=== PATIENT | female | born 1975 | race Caucasian/White ===

== ENCOUNTER 2020-09-26 12:38 | Observation (INO) ==
[2020-09-26 16:34] LABS: Basophils # 0.1 10*3/uL (0.0-0.2); Basophils % 0.7 % (0.0-0.8); Eosinophils # 0.4 10*3/uL (0.0-0.87); Eosinophils % 2.6 % (0.00-10.9); Hematocrit 39.9 VOL% (35.7-47.0); Immature Granulocytes % 0.5 %; Immature Granulocytes Absolute 0.08 #; Lymphocytes # 3.2 10*3/uL (1.4-4.0); Lymphocytes % 21.1 % (21.3-54.2); Mean Corpuscular HGB Conc 35.1 GM/DL (32-36); Mean Corpuscular Volume 90.3 FL (87-102); Mean Platelet Volume 10.3 FL (9.6-12.0); Monocytes % 8.7 % (1.7-12.7); Neutrophils % 66.4 % (38.7-73.9); Platelet Count 352 T/CUMM (130-400); Red Blood Count 4.42 MC/CUMM (3.8-5.5); Red Cell Distribution Width 12.1 % (9.3-17.3); White Blood Count 15.1 T/CUMM (4-12)
[2020-09-26 16:53] LABS: Albumin 3.2 G/DL (3.4-5.0); Bilirubin,Total 0.4 MG/DL (0.2-1.0); Calcium 9.3 MG/DL (8.5-10.1); Osmolality,Calculated 280.3 MOS/KG (273-304); Potassium 3.3 MMOL/L (3.5-5.1); Total Protein 7.9 G/DL (6.4-8.3)
[2020-09-26] MEDS ORDERED: VANCOMYCIN INJ 1,000 MG in SODIUM CHLORIDE 0.9% 250 ML IV STA (17:26)
[2020-09-26] MEDS ORDERED: LACTATED RINGERS 1,000 ML IV ONE (17:26)
[2020-09-26] MEDS ORDERED: ONDANSETRON 4 MG/2 ML VIAL IV STA (17:27)
[2020-09-26] MEDS ORDERED: MORPHINE 4 MG/1 ML VIAL IV STA (17:27)
[2020-09-26] MEDS ORDERED: GLUCAGON 1 MG VIAL IM PRN (18:45)
[2020-09-26] MEDS ORDERED: DEXTROSE 50% 25 GM/50 ML VIAL IV PRN (18:45)
[2020-09-26] MEDS ORDERED: ENOXAPARIN 40 MG/0.4 ML SYRINGE SUBCUT SCH (21:00)
[2020-09-26] MEDS: INSULIN REGULAR 100 UNIT/ML SUBCUT SCH (21:53)
[2020-09-26] MEDS: NICOTINE 21 MG/24 HR PATCH TRANSDERM SCH (22:17)
[2020-09-26] MEDS: HYDROmorphone 2 MG/1 ML VIAL IV PRN (23:09)
[2020-09-27] MEDS: VANCOMYCIN INJ 1,250 MG in SODIUM CHLORIDE 0.9% 250 ML IV SCH ×2 (04:15→17:57)
[2020-09-27] MEDS: HYDROmorphone 2 MG/1 ML VIAL IV PRN ×4 (04:20→23:49)
[2020-09-27] MEDS: ONDANSETRON 4 MG/2 ML VIAL IV PRN ×3 (04:24→17:48)
[2020-09-27 07:52] LABS: Basophils # 0.1 10*3/uL (0.0-0.2); Basophils % 1.1 % (0.0-0.8); Eosinophils # 0.2 10*3/uL (0.0-0.87); Eosinophils % 2.5 % (0.00-10.9); Hematocrit 37.6 VOL% (35.7-47.0); Hemoglobin 12.9 GM/DL (12.0-16.0); Immature Granulocytes % 0.6 %; Immature Granulocytes Absolute 0.06 #; Lymphocytes # 1.9 10*3/uL (1.4-4.0); Lymphocytes % 18.9 % (21.3-54.2); Mean Corpuscular HGB Conc 34.3 GM/DL (32-36); Mean Corpuscular Volume 93.5 FL (87-102); Mean Platelet Volume 10.4 FL (9.6-12.0); Monocytes % 8.8 % (1.7-12.7); Neutrophils % 68.1 % (38.7-73.9); Platelet Count 317 T/CUMM (130-400); Red Blood Count 4.02 MC/CUMM (3.8-5.5); Red Cell Distribution Width 12.1 % (9.3-17.3); White Blood Count 9.8 T/CUMM (4-12)
[2020-09-27 08:19] LABS: Albumin 2.6 G/DL (3.4-5.0); Bilirubin,Total 0.7 MG/DL (0.2-1.0); Calcium 9.1 MG/DL (8.5-10.1); Osmolality,Calculated 287.1 MOS/KG (273-304); Potassium 3.5 MMOL/L (3.5-5.1); Total Protein 6.7 G/DL (6.4-8.3)
[2020-09-27] MEDS ORDERED: INFLUENZA VIRUS VACCINE 0.5 ML SYRINGE IM ONE (09:00)
[2020-09-27] MEDS: INSULIN REGULAR 100 UNIT/ML SUBCUT SCH ×4 (09:24→20:20)
[2020-09-27] MEDS: NICOTINE 21 MG/24 HR PATCH TRANSDERM SCH ×2 (09:36→16:06)
[2020-09-27] MEDS ORDERED: propofoL 200 MG/20 ML VIAL IV ONE (10:02)
[2020-09-27] MEDS ORDERED: fentaNYL 100 MCG/2 ML VIAL ONE (10:02)
[2020-09-27] MEDS ORDERED: LIDOCAINE 2% 5 ML VIAL ONE (10:02)
[2020-09-27] MEDS ORDERED: MIDAZOLAM 2 MG/2 ML VIAL ONE (10:02)
[2020-09-27] MEDS ORDERED: LIDOCAINE 1% 20 ML VIAL ONE (10:21)
[2020-09-27] MEDS ORDERED: BUPIVACAINE MPF 0.25% 30 ML VIAL ONE (10:21)
[2020-09-27] MEDS ORDERED: FAMOTIDINE 20 MG/2 ML VIAL IV ONE (10:35)
[2020-09-27] MEDS ORDERED: SEVOFLURANE 1 UNIT/15 MINUTE INH ONE (11:02)
[2020-09-27] MEDS ORDERED: ONDANSETRON 4 MG/2 ML VIAL ONE (11:03)
[2020-09-27] MEDS ORDERED: HYDROmorphone 2 MG/1 ML VIAL IV PRN (11:26)
[2020-09-27] MEDS ORDERED: ONDANSETRON 4 MG/2 ML VIAL IV PRN (11:26)
[2020-09-27] MEDS: PANTOPRAZOLE 40 MG TABLET PO SCH (16:07)
[2020-09-27] MEDS ORDERED: INSULIN GLARGINE 100 UNIT/ML SUBCUT SCH (21:00)
[2020-09-28] MEDS: VANCOMYCIN INJ 1,250 MG in SODIUM CHLORIDE 0.9% 250 ML IV SCH (04:28)
[2020-09-28 05:34] LABS: Basophils # 0.1 10*3/uL (0.0-0.2); Eosinophils # 0.3 10*3/uL (0.0-0.87); Eosinophils % 3.2 % (0.00-10.9); Hematocrit 35.7 VOL% (35.7-47.0); Hemoglobin 12.1 GM/DL (12.0-16.0); Immature Granulocytes % 0.4 %; Immature Granulocytes Absolute 0.04 #; Lymphocytes # 3.1 10*3/uL (1.4-4.0); Lymphocytes % 34.3 % (21.3-54.2); Mean Corpuscular HGB Conc 33.9 GM/DL (32-36); Mean Corpuscular Volume 91.8 FL (87-102); Mean Platelet Volume 10.1 FL (9.6-12.0); Monocytes % 9.6 % (1.7-12.7); Neutrophils % 51.5 % (38.7-73.9); Platelet Count 310 T/CUMM (130-400); Red Blood Count 3.89 MC/CUMM (3.8-5.5); Red Cell Distribution Width 11.9 % (9.3-17.3); White Blood Count 8.9 T/CUMM (4-12)
[2020-09-28 06:33] LABS: Calcium 8.8 MG/DL (8.5-10.1); Osmolality,Calculated 279.3 MOS/KG (273-304); Potassium 3.3 MMOL/L (3.5-5.1)
[2020-09-28] MEDS ORDERED: MAGNESIUM SULF RIDER 4 GM in PREMIX 1 EACH IV PRN (07:02)
[2020-09-28] MEDS ORDERED: MAGNESIUM SULF RIDER 2 GM in PREMIX 1 EACH IV PRN (07:02)
[2020-09-28] MEDS: INSULIN REGULAR 100 UNIT/ML SUBCUT SCH ×2 (07:50→13:42)
[2020-09-28] MEDS: ONDANSETRON 4 MG/2 ML VIAL IV PRN (07:56)
[2020-09-28] MEDS: HYDROmorphone 2 MG/1 ML VIAL IV PRN (07:59)
[2020-09-28] MEDS: NICOTINE 21 MG/24 HR PATCH TRANSDERM SCH (08:12)
[2020-09-28] MEDS: PANTOPRAZOLE 40 MG TABLET PO SCH (08:12)
[2020-09-28 12:45] VITALS: BP 157/75
[2020-09-28] MEDS ORDERED: AMOXICILLIN 500 MG CAPSULE PO SCH (15:00)
== END 2020-09-28 15:48 | disposition home or self-care (01) ==
LOC: N.3E 12:38 → N.ED 12:38 → SUATTDRO 19:52 → N.3E 20:26
PROVIDERS: ADMIT Internal Medicine; ATTEND Internal Medicine

== ENCOUNTER 2021-06-09 13:49 | Inpatient (IN) ==
[2021-06-09 14:33] LABS: Basophils # 0.1 10*3/uL (0.0-0.2); Basophils % 0.8 % (0.0-0.8); Eosinophils # 0.2 10*3/uL (0.0-0.87); Eosinophils % 1.3 % (0.00-10.9); Hematocrit 37.7 VOL% (35.7-47.0); Hemoglobin 12.5 GM/DL (12.0-16.0); Immature Granulocytes % 0.9 %; Immature Granulocytes Absolute 0.13 #; Lymphocytes # 2.9 10*3/uL (1.4-4.0); Lymphocytes % 20.7 % (21.3-54.2); Mean Corpuscular HGB Conc 33.2 GM/DL (32-36); Mean Corpuscular Volume 94.7 FL (87-102); Mean Platelet Volume 10.5 FL (9.6-12.0); Monocytes % 9.5 % (1.7-12.7); Neutrophils % 66.8 % (38.7-73.9); Platelet Count 484 T/CUMM (130-400); Red Blood Count 3.98 MC/CUMM (3.8-5.5); Red Cell Distribution Width 12.4 % (9.3-17.3); White Blood Count 13.8 T/CUMM (4-12)
[2021-06-09 14:40] LABS: Bacteria,Urine Occasional /HPF (Few); Bilirubin,Urine Negative (Negative); Blood, Urine Small mg/dL (Negative); Glucose,Urine (UA) >=500 mg/dL (Negative); Ketones,Urine Negative (Negative); Nitrite,Urine Negative (Negative); Protein,Urine 30 MG/DL; RBC,Urine 3 /HPF (0-4); Squamous Epithelial Cell,Urine Occasional /HPF (0-10); Urine Appearance CLEAR (Clear); Urine Color Yellow (Yellow); Urine Specific Gravity 1.007 (1.001-1.035)
[2021-06-09 14:52] LABS: Albumin 2.6 G/DL (3.4-5.0); Bilirubin,Total 0.8 MG/DL (0.20-1.00); Calcium 8.8 MG/DL (8.5-10.1); Osmolality,Calculated 273.4 MOS/KG (273-304); Total Protein 7.8 G/DL (6.4-8.2)
[2021-06-09] MEDS ORDERED: SODIUM CHLORIDE 0.9% 1,000 ML IV STA (14:58)
[2021-06-09] MEDS ORDERED: METOCLOPRAMIDE 10 MG/2 ML VIAL IV STA (14:59)
[2021-06-09] MEDS ORDERED: PANTOPRAZOLE 40 MG VIAL IV STA (14:59)
[2021-06-09] MEDS ORDERED: ONDANSETRON 4 MG/2 ML VIAL IV STA (14:59)
[2021-06-09] MEDS ORDERED: ENOXAPARIN 100 MG/ML SYRINGE SUBCUT STA (15:46)
[2021-06-09] MEDS ORDERED: carvediloL 3.125 MG TABLET PO STA (15:46)
[2021-06-09] MEDS ORDERED: ASPIRIN CHEW 81 MG TABLET PO STA (15:46)
[2021-06-09] MEDS ORDERED: MAGNESIUM SULF RIDER 2 GM/50 ML PREMIX IV PRN (16:15)
[2021-06-09] MEDS ORDERED: MAGNESIUM SULF RIDER 4 GM/100 ML PREMIX IV PRN (16:15)
[2021-06-09] MEDS ORDERED: ASPIRIN 325 MG TABLET PO STA (16:25)
[2021-06-09] MEDS ORDERED: GLUCAGON 1 MG VIAL IM PRN (16:41)
[2021-06-09] MEDS ORDERED: DEXTROSE 50% 25 GM/50 ML VIAL IV PRN (16:41)
[2021-06-09] MEDS: buPROPion 75 MG TABLET PO SCH ×2 (17:51→21:13)
[2021-06-09] MEDS: COLCHICINE 0.6 MG CAPSULE PO SCH ×2 (17:51→21:13)
[2021-06-09] MEDS ORDERED: ENOXAPARIN 80 MG/0.8 ML SYRINGE SUBCUT SCH (18:00)
[2021-06-09] MEDS ORDERED: INSULIN GLARGINE 100 UNIT/ML SUBCUT SCH ×2 (21:00)
[2021-06-09] MEDS: INSULIN REGULAR 100 UNIT/ML SUBCUT SCH (21:15)
[2021-06-10] MEDS: ENOXAPARIN 80 MG/0.8 ML SYRINGE SUBCUT SCH ×2 (04:09→16:40)
[2021-06-10 05:19] LABS: Basophils # 0.1 10*3/uL (0.0-0.2); Basophils % 1.2 % (0.0-0.8); Eosinophils # 0.3 10*3/uL (0.0-0.87); Eosinophils % 2.7 % (0.00-10.9); Hematocrit 34.6 VOL% (35.7-47.0); Immature Granulocytes % 0.7 %; Immature Granulocytes Absolute 0.08 #; Lymphocytes # 2.9 10*3/uL (1.4-4.0); Lymphocytes % 26.9 % (21.3-54.2); Mean Corpuscular HGB Conc 31.8 GM/DL (32-36); Mean Corpuscular Volume 97.7 FL (87-102); Mean Platelet Volume 10.6 FL (9.6-12.0); Monocytes % 12.2 % (1.7-12.7); Neutrophils % 56.3 % (38.7-73.9); Platelet Count 432 T/CUMM (130-400); Red Blood Count 3.54 MC/CUMM (3.8-5.5); Red Cell Distribution Width 12.4 % (9.3-17.3); White Blood Count 10.8 T/CUMM (4-12)
[2021-06-10 06:01] LABS: Albumin 2.3 G/DL (3.4-5.0); Bilirubin,Total 1.5 MG/DL (0.20-1.00); Calcium 8.5 MG/DL (8.5-10.1); Osmolality,Calculated 269.1 MOS/KG (273-304); Potassium 4.1 MMOL/L (3.5-5.1); Risk Ratio 4.44; Thyroid Stimulating Hormone 1.89 uIU/ml (0.358-3.74); Total Protein 6.6 G/DL (6.4-8.2)
[2021-06-10] MEDS: PANTOPRAZOLE 40 MG TABLET PO SCH (09:05)
[2021-06-10] MEDS: buPROPion 75 MG TABLET PO SCH ×2 (09:06→20:33)
[2021-06-10] MEDS: ASPIRIN 325 MG TABLET PO SCH ×2 (09:06→20:33)
[2021-06-10] MEDS: COLCHICINE 0.6 MG CAPSULE PO SCH ×2 (09:06→20:33)
[2021-06-10] MEDS: INSULIN REGULAR 100 UNIT/ML SUBCUT SCH ×4 (09:07→20:32)
[2021-06-10] MEDS ORDERED: INDOMETHACIN 25 MG CAPSULE PO ONE (12:49)
[2021-06-10] MEDS: NICOTINE 21 MG/24 HR PATCH TRANSDERM SCH ×2 (12:58→13:30)
[2021-06-10] MEDS: LEVOFLOXACIN INJ 750 MG/150 ML PREMIX IV SCH (12:59)
[2021-06-10] MEDS ORDERED: buPROPion SR 100 MG TABLET PO SCH (13:00)
[2021-06-10] MEDS: ONDANSETRON 4 MG/2 ML VIAL IV PRN ×2 (14:37→20:28)
[2021-06-10 19:16] LABS: Bacteria,Urine Few /HPF (Few); Bilirubin,Urine Negative (Negative); Blood, Urine Negative (Negative); Glucose,Urine (UA) Negative (Negative); Ketones,Urine Negative (Negative); Nitrite,Urine Negative (Negative); Protein,Urine Negative; RBC,Urine 2 /HPF (0-4); Squamous Epithelial Cell,Urine Occasional /HPF (0-10); Urine Appearance CLEAR (Clear); Urine Color Straw (Yellow); Urine Specific Gravity 1.003 (1.001-1.035); Urine Urobilinogen < 2.0 EU/DL (0.2-1.0)
[2021-06-10] MEDS: INSULIN GLARGINE 100 UNIT/ML SUBCUT SCH (20:32)
[2021-06-11 06:01] LABS: Basophils # 0.1 10*3/uL (0.0-0.2); Basophils % 0.7 % (0.0-0.8); Eosinophils # 0.2 10*3/uL (0.0-0.87); Eosinophils % 2.2 % (0.00-10.9); Hematocrit 33.1 VOL% (35.7-47.0); Hemoglobin 10.8 GM/DL (12.0-16.0); Immature Granulocytes % 0.7 %; Immature Granulocytes Absolute 0.08 #; Lymphocytes # 2.1 10*3/uL (1.4-4.0); Lymphocytes % 19.1 % (21.3-54.2); Mean Corpuscular HGB Conc 32.6 GM/DL (32-36); Mean Platelet Volume 10.3 FL (9.6-12.0); Monocytes % 13.1 % (1.7-12.7); Neutrophils % 64.2 % (38.7-73.9); Platelet Count 423 T/CUMM (130-400); Red Blood Count 3.52 MC/CUMM (3.8-5.5); Red Cell Distribution Width 12.5 % (9.3-17.3); White Blood Count 10.8 T/CUMM (4-12)
[2021-06-11 06:27] LABS: Calcium 8.4 MG/DL (8.5-10.1); Osmolality,Calculated 274.7 MOS/KG (273-304); Potassium 3.7 MMOL/L (3.5-5.1)
[2021-06-11] MEDS: INSULIN REGULAR 100 UNIT/ML SUBCUT SCH ×3 (08:59→16:48)
[2021-06-11] MEDS: COLCHICINE 0.6 MG CAPSULE PO SCH ×2 (09:15→21:47)
[2021-06-11] MEDS: buPROPion 75 MG TABLET PO SCH ×2 (09:15→21:45)
[2021-06-11] MEDS: ENOXAPARIN 40 MG/0.4 ML SYRINGE SUBCUT SCH (09:15)
[2021-06-11] MEDS: ASPIRIN 325 MG TABLET PO SCH (09:15)
[2021-06-11] MEDS: PANTOPRAZOLE 40 MG TABLET PO SCH (09:15)
[2021-06-11] MEDS: carvediloL 3.125 MG TABLET PO SCH ×2 (13:34→16:48)
[2021-06-11] MEDS: LEVOFLOXACIN INJ 750 MG/150 ML PREMIX IV SCH (13:38)
[2021-06-11] MEDS: ONDANSETRON 4 MG/2 ML VIAL IV PRN (15:28)
[2021-06-11] MEDS: INSULIN GLARGINE 100 UNIT/ML SUBCUT SCH (21:42)
[2021-06-12] MEDS: INSULIN REGULAR 100 UNIT/ML SUBCUT SCH ×5 (02:41→21:49)
[2021-06-12 08:36] LABS: Basophils # 0.1 10*3/uL (0.0-0.2); Basophils % 0.8 % (0.0-0.8); Eosinophils # 0.2 10*3/uL (0.0-0.87); Eosinophils % 1.7 % (0.00-10.9); Hematocrit 32.9 VOL% (35.7-47.0); Hemoglobin 10.4 GM/DL (12.0-16.0); Immature Granulocytes % 0.6 %; Immature Granulocytes Absolute 0.06 #; Lymphocytes # 2.4 10*3/uL (1.4-4.0); Lymphocytes % 23.9 % (21.3-54.2); Mean Corpuscular HGB Conc 31.6 GM/DL (32-36); Mean Corpuscular Volume 95.9 FL (87-102); Mean Platelet Volume 10.9 FL (9.6-12.0); Monocytes % 13.7 % (1.7-12.7); Neutrophils % 59.3 % (38.7-73.9); Platelet Count 417 T/CUMM (130-400); Red Blood Count 3.43 MC/CUMM (3.8-5.5); White Blood Count 9.9 T/CUMM (4-12)
[2021-06-12] MEDS ORDERED: DIAZEPAM 5 MG TABLET PO ONE (08:54)
[2021-06-12] MEDS ORDERED: diphenhydrAMINE CAP 25 MG CAPSULE PO ONE (08:54)
[2021-06-12 08:56] LABS: Bilirubin,Total 0.4 MG/DL (0.20-1.00); Calcium 8.3 MG/DL (8.5-10.1); Osmolality,Calculated 278.7 MOS/KG (273-304); Total Protein 6.3 G/DL (6.4-8.2)
[2021-06-12] MEDS ORDERED: SODIUM CHLORIDE 0.45% 1,000 ML IV SCH (09:00)
[2021-06-12] MEDS: PANTOPRAZOLE 40 MG TABLET PO SCH (09:23)
[2021-06-12] MEDS: carvediloL 3.125 MG TABLET PO SCH (09:23)
[2021-06-12] MEDS: buPROPion 75 MG TABLET PO SCH ×2 (09:24→21:50)
[2021-06-12] MEDS: COLCHICINE 0.6 MG CAPSULE PO SCH ×2 (09:24→21:50)
[2021-06-12] MEDS: cefTRIAXone 1,000 MG in SODIUM CHLORIDE 0.9% 100 ML IV SCH (09:24)
[2021-06-12] MEDS: ASPIRIN 325 MG TABLET PO SCH (09:24)
[2021-06-12] MEDS: ENOXAPARIN 40 MG/0.4 ML SYRINGE SUBCUT SCH (09:24)
[2021-06-12] MEDS ORDERED: LIDOCAINE 1% 20 ML VIAL ONE (10:00)
[2021-06-12] MEDS ORDERED: MIDAZOLAM 2 MG/2 ML VIAL ONE (10:06)
[2021-06-12] MEDS ORDERED: fentaNYL 100 MCG/2 ML VIAL ONE (10:06)
[2021-06-12] MEDS ORDERED: HEPARIN 5,000 UNIT/1 ML VIAL ONE (10:07)
[2021-06-12] MEDS ORDERED: DEXTROSE 50% 25 GM/50 ML VIAL IV PRN ×2 (11:20→15:17)
[2021-06-12] MEDS ORDERED: GLUCAGON 1 MG VIAL IM PRN ×2 (11:20→15:17)
[2021-06-12] MEDS ORDERED: carvediloL 6.25 MG TABLET PO ONE (11:24)
[2021-06-12] MEDS ORDERED: ATORVASTATIN 20 MG TABLET PO SCH (21:00)
[2021-06-12] MEDS: carvediloL 12.5 MG TABLET PO SCH (21:50)
[2021-06-12] MEDS: INSULIN GLARGINE 100 UNIT/ML SUBCUT SCH (21:51)
[2021-06-13 07:03] LABS: Basophils # 0.1 10*3/uL (0.0-0.2); Basophils % 0.9 % (0.0-0.8); Eosinophils # 0.2 10*3/uL (0.0-0.87); Eosinophils % 2.4 % (0.00-10.9); Hematocrit 34.9 VOL% (35.7-47.0); Hemoglobin 11.2 GM/DL (12.0-16.0); Immature Granulocytes % 0.8 %; Immature Granulocytes Absolute 0.06 #; Lymphocytes # 2.5 10*3/uL (1.4-4.0); Lymphocytes % 31.1 % (21.3-54.2); Mean Corpuscular HGB Conc 32.1 GM/DL (32-36); Mean Platelet Volume 10.7 FL (9.6-12.0); Monocytes % 13.3 % (1.7-12.7); Neutrophils % 51.5 % (38.7-73.9); Platelet Count 423 T/CUMM (130-400); Red Blood Count 3.56 MC/CUMM (3.8-5.5); Red Cell Distribution Width 12.8 % (9.3-17.3)
[2021-06-13 07:21] LABS: Albumin 2.2 G/DL (3.4-5.0); Bilirubin,Total 0.6 MG/DL (0.20-1.00); Calcium 8.5 MG/DL (8.5-10.1); Osmolality,Calculated 276.7 MOS/KG (273-304); Potassium 3.8 MMOL/L (3.5-5.1); Total Protein 6.7 G/DL (6.4-8.2)
[2021-06-13] MEDS ORDERED: GLUCAGON 1 MG VIAL IM PRN (07:46)
[2021-06-13] MEDS ORDERED: DEXTROSE 50% 25 GM/50 ML VIAL IV PRN (07:46)
[2021-06-13] MEDS ORDERED: lisinopriL 2.5 MG TABLET PO SCH (09:30)
[2021-06-13 09:37] LABS: Folate 12.36 NG/ML (5.38-24.0)
[2021-06-13] MEDS: COLCHICINE 0.6 MG CAPSULE PO SCH (09:40)
[2021-06-13] MEDS: INSULIN REGULAR 100 UNIT/ML SUBCUT SCH ×2 (09:41→12:28)
[2021-06-13] MEDS: ENOXAPARIN 40 MG/0.4 ML SYRINGE SUBCUT SCH (09:41)
[2021-06-13] MEDS: buPROPion 75 MG TABLET PO SCH (09:41)
[2021-06-13] MEDS: ASPIRIN 325 MG TABLET PO SCH (09:41)
[2021-06-13] MEDS: PANTOPRAZOLE 40 MG TABLET PO SCH (09:41)
[2021-06-13] MEDS: cefTRIAXone 1,000 MG in SODIUM CHLORIDE 0.9% 100 ML IV SCH (09:42)
[2021-06-13] MEDS: carvediloL 12.5 MG TABLET PO SCH (09:42)
[2021-06-13 12:28] VITALS: BP 106/71
== END 2021-06-13 14:38 | disposition home or self-care (01) | DRG 281 ==
LOC: N.ED 13:49 → N.EDINP 13:49 → N.TELEN 17:30
PROVIDERS: ADMIT Internal Medicine Cardiovascular Disease; ATTEND Internal Medicine Cardiovascular Disease
PROC: CLCCHCL (ICD-10-PCS; 2021-06-12 10:45)